=== PATIENT | female | born 1975 | race Caucasian/White ===

== ENCOUNTER 2017-01-07 06:20 | Emergency (ER) | payer OTHER ==
[~2017-01-07] VITALS: Ht 170.2 cm; Wt 83.3 kg
[~2017-01-07 06:20] MED LIST: ALBU0.212 IH; BECL8.7A5 PO; ESOM40CA PO; IPRAHFA IH; MONT5TAB13 PO; TOPI15CA PO
[2017-01-07] MEDS ORDERED: ALBUTEROL SULFATE 5 MG/ML 20 ML NEB SOLN [BULK] NEB ONE ×2 (06:45→09:15)
[2017-01-07] MEDS ORDERED: IPRATROPIUM BROMIDE 0.5 MG/2.5 ML NEB SOLUTION NEB ONE ×2 (06:45→09:15)
[2017-01-07] MEDS ORDERED: PredniSONE 20 MG TABLET PO ONE (06:45)
[2017-01-07 12:07] VITALS: BP 122/70
== END 2017-01-07 12:23 | disposition home or self-care (01) ==
LOC: EMS 06:21
DX: J45.909 Unspecified asthma, uncomplicated (principal); K21.9 Gastro-esophageal reflux disease without esophagitis; Z88.1 Allergy status to other antibiotic agents
CPT/HCPCS: 94644; 94645; 99285; J7512; J7611

== ENCOUNTER 2023-04-20 07:31 | Day surgery (SDC) | payer OTHER ==
[~2023-04-20] VITALS: Ht 167.6 cm; Wt 84.1 kg
[~2023-04-20 07:31] MED LIST changes: -ALBU0.212 IH; +ALBU18HF12 IH; -BECL8.7A5 PO; -ESOM40CA PO; +HYDR12.54 PO; -IPRAHFA IH; -MONT5TAB13 PO; +OMEP40CA21 PO; +SODIUM CHLORIDE 0.9% 1,000 ML IV ONE; +SODIUM CHLORIDE 0.9% 1,000 ML ONE; -TOPI15CA PO
[2023-04-20] MEDS ORDERED: LIDOCAINE/PF 2% 5 ML VIAL IM ONE (07:32)
[2023-04-20] MEDS ORDERED: PROPOFOL 1% 20 ML VIAL IVP ONE (07:32)
== END 2023-04-20 11:10 | disposition home or self-care (01) ==
LOC: SURGERY 07:31
PROVIDERS: ATTEND Internal Medicine Gastroenterology
DX: K22.2 Esophageal obstruction (principal); K44.9 Diaphragmatic hernia without obstruction or gangrene; K22.10 Ulcer of esophagus without bleeding; K29.70 Gastritis, unspecified, without bleeding; Z88.8 Allergy status to other drugs, medicaments and biological substances; E66.3 Overweight; I10 Essential (primary) hypertension; Z79.899 Other long term (current) drug therapy; Z98.890 Other specified postprocedural states
CPT/HCPCS: 43249; 88305; 88312; 88313; 43239; C1769; J2704; J3490; J7030